=== PATIENT | female | born 1980 | race Caucasian/White ===

== ENCOUNTER → 2022-01-09 | Outpatient (CLI) | payer BC ==
--- NOTE | 2022-01-09 10:13 | XR ---
EXAMINATION TYPE: XR foot limited LT DATE OF EXAM: 01/09/2022 CLINICAL HISTORY: Left foot pain. TECHNIQUE: Frontal and lateral images of the left foot are obtained. COMPARISON: None FINDINGS: There is no acute fracture/dislocation evident in the left foot. There is valgus positioni ng at the third metatarsophalangeal joint. The overlying soft tissue appears unremarkable. IMPRESSION: As above.
== END | disposition home or self-care (01) ==
LOC: RADXRMAIN 09:29
PROVIDERS: ATTEND Internal Medicine
DX: M79.672 Pain in left foot (principal)

== ENCOUNTER → 2022-01-21 | Outpatient (CLI) | payer BC ==
--- NOTE | 2022-01-21 10:05 | XR ---
EXAMINATION TYPE: XR foot limited LT DATE OF EXAM: 01/21/2022 CLINICAL HISTORY: Left foot pain TECHNIQUE: Frontal and lateral images of the left foot are obtained. COMPARISON: Prior left foot x-ray January 09, 2022 FINDINGS: The joint spaces in the left foot remain within normal limits. The overlying soft tissue remains unremarkable. There is now linear lucency with sclerosis along the dorsal lateral aspect of t he proximal fifth metatarsal diaphysis. IMPRESSION: As above. Suspect healing nondisplaced likely stress fracture of the fifth metatarsal. Co rrelate with history and point tenderness at this level.
== END | disposition home or self-care (01) ==
LOC: RADXRMAIN 09:38
PROVIDERS: ATTEND Internal Medicine
DX: M79.672 Pain in left foot (principal)

== ENCOUNTER → 2023-10-24 | Outpatient (CLI) | payer OTHER ==
--- NOTE | 2023-10-28 11:54 | MM ---
Reason for Exam: Screening (asymptomatic). Patient History: Menarche at age 13. First Full-Term at age 21. Currently using Hormonal Contraceptives, starting at age 36. Maternal grandmother had breast cancer, age 35. Maternal aunt had breast cancer, age 40. Risk Values: Kelli 5 year model risk: 0.6%. NCI Lifetime model risk: 8.9%. Tissue Density: The breasts are heterogeneously dense, which may obscure small masses. Findings: Analyzed By CAD. Bilateral areas of masslike fibroglandular tissue on both CC and MLO views. Overall Assessment: Incomplete: need additional imaging evaluation, BI-RAD 0 Management: Diagnostic Mammogram of both breasts. [facility] will attempt to contact patient to return for supplemental views and ultrasound if indicated. Patient should continue monthly self-breast exams. A clinical breast exam by your physician is recommended on an annual basis. This exam should not preclude additional follow-up of suspicious palpable abnormalities. Note on Kelli scores and lifetime risk: 1. A Kelli score greater than 3% is considered moderate risk. If this is the case, consider specialist referral to assess eligibility for a risk reducing agent. 2. If overall lifetime risk for the development of breast cancer is 20% or higher, the patient may qualify for future screening with alternating mammogram and breast MRI. Electronically signed and approved by: Mynor Escobedo DO
== END | disposition home or self-care (01) ==
LOC: RADMAMWWP 11:25
PROVIDERS: ATTEND Family Medicine
DX: Z12.31 Encounter for screening mammogram for malignant neoplasm of breast
CPT/HCPCS: 77067

== ENCOUNTER → 2023-11-04 | Outpatient (CLI) | payer OTHER ==
--- NOTE | 2023-11-04 10:41 | MM ---
Reason for Exam: Additional evaluation requested from abnormal screening. Last screening mammogram was performed less than 1 month ago. Patient History: Menarche at age 13. First Full-Term at age 21. Currently using Hormonal Contraceptives, starting at age 36. Maternal grandmother had breast cancer, age 35. Maternal aunt had breast cancer, age 40. Risk Values: Kelli 5 year model risk: 0.6%. NCI Lifetime model risk: 8.9%. Prior Study Comparison: 10/24/2023 Bilateral MG screening mammo w CAD, [facility]. Tissue Density: The breasts are extremely dense, which lowers the sensitivity of mammography. Findings: Analyzed By CAD. Persistent nodular mass seen. No distortion evident. Overall Assessment: Negative, BI-RAD 1 Management: Screening Mammogram of both breasts in 1 year. . Results were given to the patient verbally at the time of exam. Patient should continue monthly self-breast exams. A clinical breast exam by your physician is recommended on an annual basis. This exam should not preclude additional follow-up of suspicious palpable abnormalities. Note on Kelli scores and lifetime risk: 1. A Kelli score greater than 3% is considered moderate risk. If this is the case, consider specialist referral to assess eligibility for a risk reducing agent. 2. If overall lifetime risk for the development of breast cancer is 20% or higher, the patient may qualify for future screening with alternating mammogram and breast MRI. Electronically signed and approved by: Fausto Rae M.D. Radiologis
== END | disposition home or self-care (01) ==
LOC: RADMAMWWP 09:47
PROVIDERS: ATTEND Family Medicine
DX: R92.8 Other abnormal and inconclusive findings on diagnostic imaging of breast
CPT/HCPCS: 77062; 77066